=== PATIENT | female | born 1930 | race Caucasian/White ===

== ENCOUNTER → 2017-09-15 | Outpatient (CLI) | payer OTHER ==
--- NOTE | ~2017-09-15 | P ---
Formerly [facility] [place] [address] PROCEDURE REPORT Name: CHRISTINA WARD Room #: REG [facility]#: [id number] Admission: 09/15/17 Attend Phys: Brandon Ochoa Discharge: Date of : [birth year] Report #: [id number] THIS REPORT FOR: //name// CC: Brandon Brantley [facility] physician/PCP Sabina Juárez MD DATE OF SERVICE: 09/15/2017 PROCEDURE PERFORMED: Upper endoscopy with esophageal dilation. HISTORY OF PRESENT ILLNESS: The patient is an 87-year-old female who complains of dysphagia. She is on omeprazole on a daily basis for a history of gastroesophageal reflux disease. Plan is for EGD with dilation. DESCRIPTION OF PROCEDURE: The risks and benefits of the procedure were explained to the patient, those risks including but not limited to bleeding, perforation, the risk of sedation. She understood these risks and gave informed consent. Sedation was given using propofol per anesthesia. Next, using a standard Sympoz (dba [employer])inon upper endoscope, the scope was placed in the patient's mouth and advanced under direct vision through the esophagus, stomach and into the second portion of the duodenum. The esophagus although somewhat tortuous, was otherwise normal. There was no stricture, no esophagitis. GE junction was normal. Upon entering the stomach, a medium sized hiatal hernia was noted. Overall, the gastric mucosa was normal. The pylorus was normal and patent. The duodenal bulb, first and second portion were all normal. The scope was then brought back up into the patient's stomach and a Savary guidewire was inserted through the scope, leaving the guidewire in place. Next, a 48-Faroese Savary dilation of the esophagus was then performed without difficulty. The wire and dilator were removed. The scope was reintroduced into the patient's stomach. There was no evidence of mucosal tear after dilation. The scope was then withdrawn and the procedure terminated. The patient tolerated the procedure well. IMPRESSION: 1. Hiatal hernia. 2. Otherwise, normal upper endoscopy. RECOMMENDATIONS: Observe the patient post-dilation. If continued dysphagia, consider a swallow study in the future. [address] [address] PROCEDURE REPORT Name: CHRISTINA WARD Room #: REG [facility]#: [id number] Admission: 09/15/17 Attend Phys: Brandon Ochoa Discharge: Date of : [birth year] Report #: [id number] Thank you for allowing me to participate in her care. <ELECTRONICALLY SIGNED> By: Brandon Brantley MD 09/17/17 [id number] [id number] Brandon Brantley MD /nt
== END ==
LOC: GI 08:16
DX: R13.19 Other dysphagia (principal); K44.9 Diaphragmatic hernia without obstruction or gangrene; K21.9 Gastro-esophageal reflux disease without esophagitis; I10 Essential (primary) hypertension; Z88.8 Allergy status to other drugs, medicaments and biological substances; Z88.0 Allergy status to penicillin; Z79.899 Other long term (current) drug therapy; Z98.890 Other specified postprocedural states; Z96.89 Presence of other specified functional implants
CPT/HCPCS: 62110